=== PATIENT | female | born 1985 | race Caucasian/White ===

== ENCOUNTER 2020-11-28 11:03 | Day surgery (SDC) | payer MEDICAID ==
[~2020-11-28] VITALS: Ht 162.6 cm; Wt 113.4 kg
--- NOTE | ~2020-11-28 | OP ---
PATIENT NAME: XIAO WHITNEY MEDICAL RECORD: [id number] :89 LOCATION:[facility] ADMISSION DATE: SURGEON: JEWELL MYERS MD DATE OF OPERATION: 11/28/2020 PREOPERATIVE DIAGNOSIS: Incomplete . POSTOPERATIVE DIAGNOSIS: Incomplete . PROCEDURE: Suction D&C. FINDINGS: Products of conception. ANESTHESIA: General. BLOOD LOSS: 100 cc. COMPLICATIONS: None. SPECIMENS: Products of conception. Sponge, lap and needle counts were correct. The patient tolerated it well and was taken to the recovery room in stable condition. OPERATIVE NOTE: Risks, benefits and alternatives of the procedure were explained to the patient. Informed consent was obtained. She was taken to the OR. General anesthetic was given. She was prepped and draped in normal sterile fashion and placed in lithotomy position. A bivalve speculum was placed in the vagina. Single tooth tenaculum was placed on the anterior lip of the cervix. Upon visualization of the cervix, there was products at the cervical os, which were grasped with a ring forceps and passed off to the air technician. We then performed suction curettage using a #8 curved curette. Then, using a combination of alternating sharp and suction curetting, we removed all products of conception. There were significant amount of products of conception still remaining. Once we had completed the process and obtained gritty texture of the endometrium all the way around, we then terminated the procedure. There was good hemostasis. Tenaculum sites were hemostatic. All instruments were removed and the patient was taken to the recovery room in stable condition. TRANSINT:[id number] Voice Confirmation ID: [id number] DOCUMENT ID: [id number] JEWELL MYERS MD CC: [id number] DICTATION DATE: 11/29/20 1344 BUILDING CODE ADMINISTRATOR: 11/29/20 1853 [facility] 11/28/20 [facility] [address] [place] [address]
[2020-11-28 13:46] VITALS: BP 129/67; Ht 162.6 cm; Wt 113.4 kg
[2020-11-28] MEDS ORDERED: PERCOCET 7.5/321 TAB PO (14:20)
[2020-11-28] MEDS ORDERED: AMITRIPTYLINE100 MG (14:20)
[2020-11-28] MEDS ORDERED: HUMULIN N100 U/ML (14:21)
[2020-11-28] MEDS ORDERED: HUMULIN R100 UNIT/1 (14:22)
[2020-11-28] MEDS ORDERED: NEURONTIN600 MG (14:22)
[2020-11-28 14:32] LABS: HEMOGLOBIN 13.2 g/dL (12-16); MCH 29.5 pg (26.0-34.0); MCV 89.3 fL (80.0-100.0); MEAN PLATELET VOLUME 9.8 fL (7.4-10.4); RBC 4.48 10x6/uL (4.00-5.40); RDW 13.4 % (11.5-14.5); WBC 10.5 10x3/uL (4.8-10.8)
--- NOTE | 2020-11-28 18:31 | NUR ---
1820 ASSISSTED UP TO BR, VOIDS, CAITY PAD PROVIDED WITH DISPOSABLE UNDERWEAR. PT. ASKED FOR "OXYCONTIN".
== END 2020-11-28 19:35 | disposition home or self-care (01) ==
LOC: D.OPS 11:03
PROVIDERS: ATTEND Obstetrics & Gynecology Maternal & Fetal Medicine
DX: O03.4 Incomplete spontaneous abortion without complication (principal)